=== PATIENT | female | born 1975 | race Caucasian/White ===

== ENCOUNTER → 2022-03-13 12:12 | Outpatient (CLI) | payer SELFPAY ==
[2022-03-13 12:29] VITALS: BMI 23.5
== END ==
PROVIDERS: PCP Family Medicine; Visit Provider Nurse Practitioner Family
DX: Z11.1 Encounter for screening for respiratory tuberculosis (principal)
CPT/HCPCS: 86580

== ENCOUNTER → 2022-06-02 11:40 | Outpatient (CLI) | payer BC, SELFPAY ==
--- NOTE | 2022-06-02 11:48 | XR_ITS ---
FINAL REPORT CLINICAL HISTORY: COUGH family hx of hypertension FINDINGS: TWO-VIEW CHEST The heart size is normal. The mediastinum is normal. The lungs are clear. There is no pneumothorax. IMPRESSION: No acute cardiopulmonary process. Reviewed, Interpreted and Dictated by Romero Armstrong MD Transcribed by Sonia Giraldo Authenticated and [facility]
--- NOTE | 2022-06-02 12:06 | ECG_ITS ---
APPROVED REPORT Exam: Resting ECG HR:74 bpm ECG Measurements Heart Rate 74 AXES AR 147 P 45 QRSd 91 QRS 18 QT 366 T 45 QTc 393 Conclusion SINUS RHYTHM NORMAL ECG UNCONFIRMED REPORT Electronically signed by : Saud Burgess MD 06/02/2022 20:19:38
== END ==
PROVIDERS: PCP Family Medicine; Visit Provider Family Medicine
DX: Z01.818 Encounter for other preprocedural examination (principal)
CPT/HCPCS: 71046; 93005